=== PATIENT | male | born 1995 | race Caucasian/White ===

== ENCOUNTER 2019-08-28 09:01 | Observation (INO) | payer SELFPAY ==
[2019-08-28] VITALS (10 sets, daily range): BP systolic 127–143; BP diastolic 80–103; PULSE 92–134; RESP 16–18; TEMP 36.3–36.9; O2SAT 94–100; BMI 34.4
--- NOTE | 2019-08-28 09:09 | W.ED.ABDPA2 ---
Documented by User: ALEX Rowell 08/28/19 11:36 HPI - Abdominal Pain General: Chief Complaint: Abdominal Pain Stated Complaint: ABD PAIN Time Seen by Provider: 08/28/19 09:06 Source: patient Mode of arrival: ambulatory Limitations: no limitations History of Present Illness: HPI narrative: Patient comes in today for complaints of abdominal discomfort starting last night and persistent vomiting since that time. Patient has a history of appendectomy which had a rupture and cause some significant scarring and adhesions. Patient since then has had episodes of small bowel obstruction none of them requiring surgery but the last episode was 2 years ago which patient did not even have medical evaluation reportedly. Review of the chart noted that patient had an admission for small bowel obstruction and 2015. Patient also has a history of high blood pressure and was diagnosed when he was 18 years of age at that time. Patient denies any fever or chills. Patient appears mildly unwell. Patient appears in moderate discomfort. Associated Symptoms: Reports constipation, nausea and vomiting Review of Systems General: Reports: 10 or more systems reviewed and unremarkable except in HPI and below GI: Reports: abdominal pain, nausea, vomiting and constipation PFSH ED PFSH: Surgical History (Updated 08/28/19 @ 17:33 by Marcello Bro MD) History of appendectomy Social History Smoking and tobacco status: never smoked Physical Exam Const: COMMON NORMALS: no apparent distress and oriented x3 GENERAL APPEARANCE: cooperative HENMT: COMMON NORMALS: normocephalic, TM's normal bilaterally and external nose normal HEAD & SCALP: normal to inspection and normocephalic NOSE: external nose normal TYMPANIC MEMBRANE: TM's normal bilaterally MOUTH: oral and palatal mucosa normal THROAT: posterior oropharynx normal Eye: GENERAL EYE: normal appearance of both eyes Neck/C-Spine: COMMON NORMALS: full ROM Lymph: LYMPHATIC: no lymphadenopathy noted Chest: COMMONS NORMALS: inspection of chest normal Resp: COMMON NORMALS: normal respiratory effort EFFORT & INSPECTION: Yes able to speak in complete sentences Cardio: COMMON NORMALS: regular rate and regular rhythm RATE: regular rate RHYTHM: regular rhythm GI: COMMON NORMALS: soft to palpation AUSCULTATION: Yes normoactive bowel sounds PALPATION: Yes soft, Yes tender (generalized), No guarding and No rigid : COMMON NORMALS: Yes no CVA tenderness BLADDER/KIDNEY EXAM: Yes no CVA tenderness Back/Pelvis: COMMON NORMALS: no CVA tenderness and thoracic and lumbar spine normal to inspection Extremity: COMMON NORMALS: normal to inspection Neuro: COMMON NORMALS: oriented x3 and moves all extremities Psych: COMMON NORMALS: mental status grossly normal and cooperative Skin: COMMON NORMALS: no rashes or lesions noted GENERAL SKIN EXAM: no rashes or lesions noted Course ED course: 1020, discussed with Dr. Guevara abnormal CT scan showing small bowel obstruction. Recommended to consult with surgery and admission.[email or web address] Vital Signs: Vital signs: Vital Signs Temperature 98.1 F 08/29/19 14:57 Pulse Rate 88 08/29/19 14:57 Respiratory Rate 20 H 08/29/19 14:57 Blood Pressure 105/71 08/29/19 14:57 Pulse Oximetry 98 08/29/19 14:57 MDM - Abdominal Pain MDM Narrative: Medical decision making narrative: Patient came in today for complaints of abdominal pain with nausea and vomiting starting last evening. Patient reports that his last episode of a small bowel obstruction was about 2 years ago where he had had similar symptoms but they resolved by the morning. Patient had a admission to the hospital in 2014 for small bowel obstruction. Exam notes abdomen is soft with generalized tenderness. Bowel sounds are present. Vital signs are normal except for mild elevation in blood pressure and pulse. Skin is warm and dry. Lungs are clear to auscultation. Differential diagnosis includes but not limited to small bowel obstruction, gastroenteritis, constipation, pancreatitis, perforation of the viscus. Laboratory values noted a mild elevation in white blood cell count at 13,000. Metabolic panel was fairly normal. Patient was treated with IV normal saline 1000 cc and 2 mg of morphine and 4 mg of Zofran with good results. CT scan noted small bowel obstruction with transition at old anastomosis site. 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 Reviewed exam with patient with recommendations for admission for monitoring for deterioration of condition, and surgical consult. Discussed with Dr. Guevara who agreed to plan. Patient stated understanding of treatment recommendations and plan. Lab Data: Labs: Lab Results 08/28/19 08/28/19 08/28/19 Range/Units 09:18 09:18 09:18 WBC 13.4 H (4.0-10.0) 10^3/ uL RBC 5.91 H (4.1-5.3) 10^6/u L Hgb 16.4 (11.7-16.6) g/dL Hct 50.0 (42.0-52.0) % MCV 84.6 (80-94) fL MCH 27.7 L (28.0-34.0) pg MCHC 32.8 (30.0-36.0) g/dL RDW 11.8 L (12.1-15.1) % Plt Count 317 (130-400) 10^3/c mm MPV 11.9 H (7.4-10.4) fL Neut % (Auto) 87.5 % Lymph % (Auto) 7.4 % Ventura % (Auto) 4.7 % Eos % (Auto) 0.0 % Baso % (Auto) 0.1 % Neut # (Auto) 11.8 H (1.8-7.7) 10^3/u L Lymph # (Auto) 1.0 (0.8-4.8) 10^3/u L [place] # (Auto) 0.6 (0.2-0.9) 10^3/u L Eos # (Auto) 0.0 (0.0-0.8) 10^3/u L Baso # (Auto) 0.0 (0.0-0.1) 10^3/u L Nucleated RBC % (a uto) 0 % Nucleated RBCs # 0.0 /100WBC PT 13.10 (10.5-13.3) SECO NDS INR 0.96 (0.8-1.2) APTT 23.6 L (23.9-36.7) SECO NDS Sodium 138 (136-145) mmol/L Potassium 4.1 (3.5-5.1) mmol/L Chloride 100 (98-107) mmol/L Carbon Dioxide 22 (22-29) mmol/L Anion Gap 20.1 H (5-19) BUN 13 (6-20) mg/dL Creatinine 1.0 (0.7-1.2) mg/dL GFR Calculation 93.4 (90-130) mL/min Glucose 136 H (65-115) mg/dL Calculated Osmolal ity 284 L (285-295) mOsm/k g Calcium 9.8 (8.5-10.5) mg/dL Total Bilirubin 0.7 (0.15-1.2) mg/dL AST 33 (0-40) U/L ALT 62 H (0-41) U/L Alkaline Phosphata se 99 (40-130) IU/L Total Protein 8.2 (6.6-8.7) g/dL Albumin 5.1 (3.5-5.2) g/dL Globulin 3.1 (1.3-4.6) g/dL Lipase 22 (13-60) U/L Urine Color (Yellow) Urine Appearance (CLEAR) Urine pH (5-7) Ur Specific Gravit y (1.005-1.030) Urine Protein (Negative) Urine Glucose (UA) (Normal) Urine Ketones (Negative) Urine Blood (Negative) Urine Nitrate (Negative) Urine Bilirubin (NEGATIVE) Urine Urobilinogen (Negative) mg/dL Ur Leukocyte Krystin ase (Negative) Urine RBC (0-2) /hpf Urine WBC (0-5) /hpf Ur Squamous Epith Cells (0-5) Urine Bacteria (NONE) Fine Granular Cast s /lpf RBC Casts /lpf Urine Mucus 08/28/19 Range/Units 09:32 WBC (4.0-10.0) 10^3/ uL RBC (4.1-5.3) 10^6/u L Hgb (11.7-16.6) g/dL Hct (42.0-52.0) % MCV (80-94) fL MCH (28.0-34.0) pg MCHC (30.0-36.0) g/dL RDW (12.1-15.1) % Plt Count (130-400) 10^3/c mm MPV (7.4-10.4) fL Neut % (Auto) % Lymph % (Auto) % Ventura % (Auto) % Eos % (Auto) % Baso % (Auto) % Neut # (Auto) (1.8-7.7) 10^3/u L Lymph # (Auto) (0.8-4.8) 10^3/u L [place] # (Auto) (0.2-0.9) 10^3/u L Eos # (Auto) (0.0-0.8) 10^3/u L Baso # (Auto) (0.0-0.1) 10^3/u L Nucleated RBC % (a uto) % Nucleated RBCs # /100WBC PT (10.5-13.3) SECO NDS INR (0.8-1.2) APTT (23.9-36.7) SECO NDS Sodium (136-145) mmol/L Potassium (3.5-5.1) mmol/L Chloride (98-107) mmol/L Carbon Dioxide (22-29) mmol/L Anion Gap (5-19) BUN (6-20) mg/dL Creatinine (0.7-1.2) mg/dL GFR Calculation (90-130) mL/min Glucose (65-115) mg/dL Calculated Osmolal ity (285-295) mOsm/k g Calcium (8.5-10.5) mg/dL Total Bilirubin (0.15-1.2) mg/dL AST (0-40) U/L ALT (0-41) U/L Alkaline Phosphata se (40-130) IU/L Total Protein (6.6-8.7) g/dL Albumin (3.5-5.2) g/dL Globulin (1.3-4.6) g/dL Lipase (13-60) U/L Urine Color Yellow (Yellow) Urine Appearance Hazy A (CLEAR) Urine pH 5 (5-7) Ur Specific Gravit y 1.020 (1.005-1.030) Urine Protein 1+ H (Negative) Urine Glucose (UA) Norm (Normal) Urine Ketones 1+ H (Negative) Urine Blood 2+ H (Negative) Urine Nitrate Negative (Negative) Urine Bilirubin 1+ H (NEGATIVE) Urine Urobilinogen 1 H (Negative) mg/dL Ur Leukocyte Krystin ase Negative (Negative) Urine RBC 5-10 H (0-2) /hpf Urine WBC None (0-5) /hpf Ur Squamous Epith Cells 0-4 H (0-5) Urine Bacteria 2+ H (NONE) Fine Granular Cast s 0-4 H /lpf RBC Casts Rare /lpf Urine Mucus 2+ Discharge Plan Discharge Patient Disposition: Placed in Observation Admit Provider: Marcello Bro Clinical Impression: Small bowel obstruction Condition: Stable Referrals: Marcello Bro MD [Physician] - 09/12/19 2:15 pm (Return to surgery office in 2 weeks) Jonna Casiano DO [Physician] - 4-7 days Discharge Diet: Advance as tolerated Discharge Activity: Resume usual activity Patient Instructions: Constipation - Adult, Bowel Obstruction (DC) Additional Instructions: Education about avoid constipation and appropriate hydration Return back to work this coming 09/02/2019 Patient can be discharged home today once his comfortable and tolerating well p.o. 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 He was found to have a bowel obstruction admitted to see the patient he is complaining of abdominal pain and bloating as had a bowel movement yesterday. He had nausea and vomiting overnight he still has nausea but has not had further vomiting. He had previously had a ruptured appendix that required a small bowel obstruction he said a couple other episodes of bowel obstruction since due to adhesions. MD elicited complaint: abdominal pain Pertinent past history: other (Previous small bowel resection due to abscess from) Onset (ago): day(s) Pain Consistency: constant Location: RLQ Severity: severe Quality: cramping Radiation: none Migration to: no migration Context: history of similar episodes Associated Symptoms: Reports anorexia, bloating, GI cramping, nausea, poor appetite and vomiting; Denies chills, fever(s), hematochezia, hematuria, hematemesis, loose stools and melena Review of Systems Const: Denies: fever, chills, body aches, change in appetite, fatigue or malaise ENMT: Denies: throat pain, ear pain, nasal discharge or nasal congestion Card: Denies: chest pain, edema, shortness of breath on exertion or shortness of breath when lying down Resp: Denies: shortness of breath, productive cough or non-productive cough GI: Reports: nausea, vomiting, bloating and cramping; Denies: vomiting blood, blood in stool or black tarry stool : Denies: blood in urine Skin/Breast: Denies: rash or itching PFSH ED PFSH: Surgical History (Updated 08/28/19 @ 17:33 by Marcello Bro MD) History of appendectomy Social History Smoking and tobacco status: never smoked Physical Exam Const: COMMON NORMALS: average body habitus, oriented x3 and alert GENERAL APPEARANCE: cooperative, comfortable, well kempt and well developed NUTRITIONAL APPEARANCE: obese ORIENTATION/CONSCIOUSNESS: Yes awake, Yes oriented to person and Yes oriented to place Neck/C-Spine: COMMON NORMALS: no meningeal signs Resp: COMMON NORMALS: normal respiratory effort, no retractions, no use of accessory muscles and clear to auscultation bilaterally AUSCULTATION: clear to auscultation bilaterally Cardio: COMMON NORMALS: regular rate and regular rhythm RATE: regular rate RHYTHM: regular rhythm HEART SOUNDS: no murmurs GI: COMMON NORMALS: no hepatosplenomegaly INSPECTION: Yes abdominal distension AUSCULTATION: Yes absent bowel sounds PALPATION: Yes no hepatosplenomegaly PERCUSSION: tympanic to percussion : COMMON NORMALS: Yes no CVA tenderness BLADDER/KIDNEY EXAM: Yes no CVA tenderness Back/Pelvis: COMMON NORMALS: no CVA tenderness LUMBAR SPINE/LOWER BACK: Yes normal to inspection Extremity: COMMON NORMALS: no clubbing, cyanosis or edema, no calf tenderness and no pedal edema Neuro: COMMON NORMALS: oriented x3 SENSORIUM/ORIENTATION: Yes alert, Yes oriented to person and Yes oriented to place MENINGEAL SIGNS: Yes no meningeal signs Psych: APPEARANCE: Yes well kempt Skin: COMMON NORMALS: no rashes or lesions noted and skin turgor normal GENERAL SKIN EXAM: no rashes or lesions noted and turgor normal Course Vital Signs: Vital signs: Vital Signs Temperature 98.1 F 08/29/19 14:57 Pulse Rate 88 08/29/19 14:57 Respiratory Rate 20 H 08/29/19 14:57 Blood Pressure 105/71 08/29/19 14:57 Pulse Oximetry 98 08/29/19 14:57 MDM - Abdominal Pain MDM Narrative: Medical decision making narrative: NG placed cussed Dr. Bro will admit to his services. Lab Data: Labs: Lab Results 08/28/19 08/28/19 08/28/19 Range/Units 09:18 09:18 09:18 WBC 13.4 H (4.0-10.0) 10^3/ uL RBC 5.91 H (4.1-5.3) 10^6/u L Hgb 16.4 (11.7-16.6) g/dL Hct 50.0 (42.0-52.0) % MCV 84.6 (80-94) fL MCH 27.7 L (28.0-34.0) pg MCHC 32.8 (30.0-36.0) g/dL RDW 11.8 L (12.1-15.1) % Plt Count 317 (130-400) 10^3/c mm MPV 11.9 H (7.4-10.4) fL Neut % (Auto) 87.5 % Lymph % (Auto) 7.4 % Ventura % (Auto) 4.7 % Eos % (Auto) 0.0 % Baso % (Auto) 0.1 % Neut # (Auto) 11.8 H (1.8-7.7) 10^3/u L Lymph # (Auto) 1.0 (0.8-4.8) 10^3/u L [place] # (Auto) 0.6 (0.2-0.9) 10^3/u L Eos # (Auto) 0.0 (0.0-0.8) 10^3/u L Baso # (Auto) 0.0 (0.0-0.1) 10^3/u L Nucleated RBC % (a uto) 0 % Nucleated RBCs # 0.0 /100WBC PT 13.10 (10.5-13.3) SECO NDS INR 0.96 (0.8-1.2) APTT 23.6 L (23.9-36.7) SECO NDS Sodium 138 (136-145) mmol/L Potassium 4.1 (3.5-5.1) mmol/L Chloride 100 (98-107) mmol/L Carbon Dioxide 22 (22-29) mmol/L Anion Gap 20.1 H (5-19) BUN 13 (6-20) mg/dL Creatinine 1.0 (0.7-1.2) mg/dL GFR Calculation 93.4 (90-130) mL/min Glucose 136 H (65-115) mg/dL Calculated Osmolal ity 284 L (285-295) mOsm/k g Calcium 9.8 (8.5-10.5) mg/dL Total Bilirubin 0.7 (0.15-1.2) mg/dL AST 33 (0-40) U/L ALT 62 H (0-41) U/L Alkaline Phosphata se 99 (40-130) IU/L Total Protein 8.2 (6.6-8.7) g/dL Albumin 5.1 (3.5-5.2) g/dL Globulin 3.1 (1.3-4.6) g/dL Lipase 22 (13-60) U/L Urine Color (Yellow) Urine Appearance (CLEAR) Urine pH (5-7) Ur Specific Gravit y (1.005-1.030) Urine Protein (Negative) Urine Glucose (UA) (Normal) Urine Ketones (Negative) Urine Blood (Negative) Urine Nitrate (Negative) Urine Bilirubin (NEGATIVE) Urine Urobilinogen (Negative) mg/dL Ur Leukocyte Krystin ase (Negative) Urine RBC (0-2) /hpf Urine WBC (0-5) /hpf Ur Squamous Epith Cells (0-5) Urine Bacteria (NONE) Fine Granular Cast s /lpf RBC Casts /lpf Urine Mucus 08/28/19 Range/Units 09:32 WBC (4.0-10.0) 10^3/ uL RBC (4.1-5.3) 10^6/u L Hgb (11.7-16.6) g/dL Hct (42.0-52.0) % MCV (80-94) fL MCH (28.0-34.0) pg MCHC (30.0-36.0) g/dL RDW (12.1-15.1) % Plt Count (130-400) 10^3/c mm MPV (7.4-10.4) fL Neut % (Auto) % Lymph % (Auto) % [place] % (Auto) % Eos % (Auto) % Baso % (Auto) % Neut # (Auto) (1.8-7.7) 10^3/u L Lymph # (Auto) (0.8-4.8) 10^3/u L [place] # (Auto) (0.2-0.9) 10^3/u L Eos # (Auto) (0.0-0.8) 10^3/u L Baso # (Auto) (0.0-0.1) 10^3/u L Nucleated RBC % (a uto) % Nucleated RBCs # /100WBC PT (10.5-13.3) SECO NDS INR (0.8-1.2) APTT (23.9-36.7) SECO NDS Sodium (136-145) mmol/L Potassium (3.5-5.1) mmol/L Chloride (98-107) mmol/L Carbon Dioxide (22-29) mmol/L Anion Gap (5-19) BUN (6-20) mg/dL Creatinine (0.7-1.2) mg/dL GFR Calculation (90-130) mL/min Glucose (65-115) mg/dL Calculated Osmolal ity (285-295) mOsm/k g Calcium (8.5-10.5) mg/dL Total Bilirubin (0.15-1.2) mg/dL AST (0-40) U/L ALT (0-41) U/L Alkaline Phosphata se (40-130) IU/L Total Protein (6.6-8.7) g/dL Albumin (3.5-5.2) g/dL Globulin (1.3-4.6) g/dL Lipase (13-60) U/L Urine Color Yellow (Yellow) Urine Appearance Hazy A (CLEAR) Urine pH 5 (5-7) Ur Specific Gravit y 1.020 (1.005-1.030) Urine Protein 1+ H (Negative) Urine Glucose (UA) Norm (Normal) Urine Ketones 1+ H (Negative) Urine Blood 2+ H (Negative) Urine Nitrate Negative (Negative) Urine Bilirubin 1+ H (NEGATIVE) Urine Urobilinogen 1 H (Negative) mg/dL Ur Leukocyte Krystin ase Negative (Negative) Urine RBC 5-10 H (0-2) /hpf Urine WBC None (0-5) /hpf Ur Squamous Epith Cells 0-4 H (0-5) Urine Bacteria 2+ H (NONE) Fine Granular Cast s 0-4 H /lpf RBC Casts Rare /lpf Urine Mucus 2+ Discharge Plan Discharge Patient Disposition: Placed in Observation Admit Provider: Marcello Bro Clinical Impression: Small bowel obstruction Condition: Stable Referrals: Marcello Bro MD [Physician] - 09/12/19 2:15 pm (Return to surgery office in 2 weeks) Jonna Casiano DO [Physician] - 4-7 days Discharge Diet: Advance as tolerated Discharge Activity: Resume usual activity Patient Instructions: Constipation - Adult, Bowel Obstruction (DC) Additional Instructions: Education about avoid constipation and appropriate hydration Return back to work this coming 09/02/2019 Patient can be discharged home today once his comfortable and tolerating well p.o. Discharge Date/Time: 08/28/19 11:25 Coding Level of Care Code ED Metal Sheet Roller Operator for Chg Fwd Exam Comprehensive
--- NOTE | 2019-08-28 09:18 | CT_ITS ---
WS: [id number] CT ABDOMEN PELVIS TECHNIQUE: Contrast-enhanced CT of the abdomen and pelvis with coronal and sagittal reformatted image s. CLINICAL INFORMATION: abd pain, n/v, hx of SBO COMPARISON: None. DLP: 1632.[address] scans at [facility] use at least one of these dose optimization techniques: automat ed exposure control; mA and/or kV adjustment per patient size (includes targeted exams where dose is matched to clinical indication); or iterative reconstruction. FINDINGS: Mild diffuse fatty infiltration liver. Normal gallbladder. Normal spleen. Pancreas appears normal. Ad renal glands are normal. Normal bilateral renal parenchymal enhancement. No hydronephrosis. No upper abdominal lymphadenopathy. Normal GE junction. Lung bases are well aerated. Normal sigmoid colon. Colon is decompressed. Prior postoperative changes involving the ileum with flu id distended small bowel loops in the midabdomen and pelvis consistent with partial small bowel obstr uction. Bowel loops measure approximately 4.1 cm in maximum dimension. Air-fluid levels seen in the s mall bowel. Stomach and proximal small bowel are normal. Transition point point in the distal ileum a t the anastomosis with mild narrowing. Series 2 image 72, appears to result in the partial small waqas l obstruction. No abdominal or pelvic lymphadenopathy. Mild lumbar curve convex left. CT/CT abdomen pelvis w con* [id number] IMPRESSION: 1. Partial small bowel obstruction involving the ileum with fluid distended sm all bowel loops measuring 4.1 cm with air-fluid levels. Colon is decompressed. 2. Mild narrowing with transition point at the prior postoperative small bowel anastomosis in the distal ileum, series 2 image 72. 3. Mild diffuse fatty infiltration of the liver. 4. No hydronephrosis in either kidney.
[2019-08-28] MEDS: morphine 4 mg/mL SDV 1 mL 2 MG IVP (09:28)
[2019-08-28] MEDS: sodium chloride 0.9% 1,000 ML 999 ML IV (09:28)
[2019-08-28] MEDS: ondansetron 2 mg/ML SDV 2 mL 4 MG IVP (09:28)
--- NOTE | 2019-08-28 09:31 | PC.NURSE ---
Pt to CT
[2019-08-28] MEDS: iohexol 300 mg/mL 100 mL Btl IV (09:37)
[2019-08-28 09:40] LABS: Basophils % 0.1 %; Hemoglobin 16.4 g/dL (11.7-16.6); Lymphocytes % 7.4 %; Mean Corpuscular HGB Conc 32.8 g/dL (30.0-36.0); Mean Corpuscular Hemoglobin 27.7 pg (28.0-34.0); Mean Corpuscular Volume 84.6 fL (80-94); Mean Platelet Volume 11.9 fL (7.4-10.4); Monocytes # 0.6 10^3/uL (0.2-0.9); Monocytes % 4.7 %; Neutrophils # 11.8 10^3/uL (1.8-7.7); Neutrophils % 87.5 %; Nucleated Red Blood Cells % 0 %; Platelet Count 317 10^3/cmm (130-400); Red Blood Count 5.91 10^6/uL (4.1-5.3); Red Cell Distribution Width 11.8 % (12.1-15.1); White Blood Count 13.4 10^3/uL (4.0-10.0)
--- NOTE | 2019-08-28 09:44 | PC.NURSE ---
Pt returned from ct
[2019-08-28 09:51] LABS: Bilirubin Urine 1+ (NEGATIVE); Blood Urine 2+ (Negative); Glucose Urine UA Norm (Normal); Ketones Urine 1+ (Negative); Leukocyte Esterase Urine Negative (Negative); Nitrate Urine Negative (Negative); Protein Urine 1+ (Negative); Urine Appearance Hazy (CLEAR); Urine Color Yellow (Yellow); Urobilinogen Urine 1 mg/dL (Negative); pH Urine 5 (5-7)
[2019-08-28 09:52] LABS: Add Urine Microscopic? YES
[2019-08-28 09:54] LABS: Add Urine Culture? Yes; Bacteria Urine 2+; Fine Granular Casts Urine 0-4 /lpf; Mucus Urine 2+; Red Blood Cell Casts Urine RARE /lpf; Squamous Epithelial Cell Urine 0-4 (0-5)
[2019-08-28 09:57] LABS: Alanine Aminotransferase 62 U/L (0-41); Albumin Level 5.1 g/dL (3.5-5.2); Alkaline Phosphatase 99 IU/L (40-130); Anion Gap 20.1 (5-19); Aspartate Amino Transferase 33 U/L (0-40); Blood Urea Nitrogen 13 mg/dL (6-20); Calcium 9.8 mg/dL (8.5-10.5); Carbon Dioxide 22 mmol/L (22-29); Chloride 100 mmol/L (98-107); Globulin 3.1 g/dL (1.3-4.6); Glomerular Filtration Rate 93.4 mL/min (90-130); Glucose 136 mg/dL (65-115); Lipase 22 U/L (13-60); Osmolality Calculated 284 mOsm/kg (285-295); Potassium 4.1 mmol/L (3.5-5.1); Sodium 138 mmol/L (136-145); Total Bilirubin 0.7 mg/dL (0.15-1.2); Total Protein 8.2 g/dL (6.6-8.7)
--- NOTE | 2019-08-28 10:09 | XR_ITS ---
WS: [id number] XR chest 1V portable [id number] REASON FOR EXAM: SBO FINDINGS: The heart and mediastinal interfaces normal. Lung daley are well aerated. No pneumonia, pleural effusion, pulmonary edema, pneumothorax, or mass effect. The hilum and apices normal. No osseous abnormalities. XR/XR chest 1V portable [id number] IMPRESSION: Negative chest for active pathology.
--- NOTE | 2019-08-28 10:22 | PC.NURSE ---
Pt given mouth swabs per request. Updated on wait for radiology report. Pt denies needs at this time. Call light in reach.
--- NOTE | 2019-08-28 10:40 | PC.NURSE ---
16Fr NGT placed to right nare. Pt tolerated procedure fairly. Placement confirmed by auscultation and aspiration of gastric contents. Pt hooked to suction per VO from Dr Guevara.
[2019-08-28] MEDS: sodium chlor 0.9% + KCl 20 mEq 20 MEQ/1,000 ML BAG 125 MEQ IV (11:15)
--- NOTE | 2019-08-28 11:39 | P.HP_ITS ---
Providers/Chief Complaint Admitting Physician: Marcello Bro MD Chief Complaint: SMALL BOWEL OBSTRUCTION History of Present Illness Chief Complaint: Nausea vomiting and abdominal pain History of present illness: Mr. Manny Banerjee is a pleasant 23 year old male with history of open appendectomy back in 2004 at a different facility that complicated and developed what he describes as necrotic bowel and he had to have an exploratory laparotomy and ended up by bowel resection, patient describes that he had a bout of partial bowel obstruction back in 2014 and was treated conservatively, the presents to the emergency department with worsening abdominal pain particularly in the right and left upper quadrants and right lower quadrant pain seems to be more dull aching is not being referred and that was associated with nausea and vomiting, as his symptoms got worse came to the ER and undergone blood work and imaging studies CT scan of the abdomen and pelvis showed: Mild diffuse fatty infiltration liver. Normal gallbladder. Normal spleen. Pancreas appears normal. Adrenal glands are normal. Normal bilateral renal parenchymal enhancement. No hydronephrosis. No upper abdominal lymphadenopathy. Normal GE junction. Lung bases are well aerated. Normal sigmoid colon. Colon is decompressed. Prior postoperative changes involving the ileum with fluid distended small bowel loops in the midabdomen and pelvis consistent with partial small bowel obstruction. Bowel loops measure approximately 4.1 cm in maximum dimension. Air- fluid levels seen in the small bowel. Stomach and proximal small bowel are normal. Transition point point in the distal ileum at the anastomosis with mild narrowing. Series 2 image 72, appears to result in the partial small bowel obstruction. No abdominal or pelvic lymphadenopathy. Mild lumbar curve convex left. CT/CT abdomen pelvis w con* [id number] IMPRESSION: 1. Partial small bowel obstruction involving the ileum with fluid distended small bowel loops measuring 4.1 cm with air-fluid levels. Colon is decompressed. 2. Mild narrowing with transition point at the prior postoperative small bowel anastomosis in the distal ileum, series 2 image 72. 3. Mild diffuse fatty infiltration of the liver. 4. No hydronephrosis in either kidney. Patient reports that his last bowel movement 3 PM yesterday and he does not remember one was last time he passed gas, denies any fever chills or jaundice. General surgery was consulted for further evaluation and management and NG tube has been already placed per ED team feeling scanty gastric count Review of Systems General: Reports: 10 or more systems reviewed and unremarkable except in HPI and below Medications/Allergies Home Medications Medication Instructions Recorded Confirmed Last Taken Type No Known Home Medications 08/28/19 08/28/19 Unknown History Allergies Allergy/AdvReac Type Severity Reaction Status Date / Time Penicillins Allergy Unknown Verified 08/28/19 13:36 Sulfa (Sulfonamide Allergy Unknown Verified 08/28/19 13:36 Antibiotics) PFSH Acute PFSH: Surgical History (Updated 08/28/19 @ 17:33 by Marcello Bro MD) History of appendectomy Social History Smoking and tobacco status: never smoked Vitals/I&O/Wt Last Vital Signs Temp 97.7 F 08/28/19 11:33 Pulse 102 H 08/28/19 11:33 Resp 18 08/28/19 11:33 BP 138/90 08/28/19 11:33 Pulse Ox 98 08/28/19 11:33 08/27/19 08/28/19 08/28/19 22:59 06:59 14:59 Intake Total 1000 / 1000 Balance 1000 / 1000 Weight last 48 hrs Weight 240 lb Physical Exam Const: COMMON NORMALS: no apparent distress and oriented x3 GENERAL APPEARANCE: cooperative ORIENTATION/CONSCIOUSNESS: Yes awake, Yes oriented to person, Yes oriented to place and Yes oriented to time HENMT: COMMON NORMALS: normocephalic HEAD & SCALP: normocephalic NOSE: other (NG in place with minimal output) Eye: COMMON NORMALS: PERRL and no scleral icterus PUPIL: Yes PERRL Lymph: LYMPHATIC: no lymphadenopathy noted Chest: COMMONS NORMALS: inspection of chest normal Resp: COMMON NORMALS: normal respiratory effort and clear to auscultation bilaterally AUSCULTATION: clear to auscultation bilaterally Cardio: COMMON NORMALS: S1 normal heart sound and S2 normal heart sound; negative for no murmurs HEART SOUNDS: S1 normal and S2 normal GI: COMMON NORMALS: soft to palpation; negative for no hepatosplenomegaly INSPECTION: Yes normal to inspection PALPATION: Yes soft, No firm, No tender, No guarding, No rigid, No no hepatosplenomegaly, No hepatosplenomegaly, No splenomegaly, No hernia and Yes other (Right lower quadrant transverse scar and mid midline scar) Neuro: COMMON NORMALS: oriented x3 SENSORIUM/ORIENTATION: Yes oriented to person, Yes oriented to place and Yes oriented to time Psych: COMMON NORMALS: mental status grossly normal Skin: COMMON NORMALS: no rashes or lesions noted GENERAL SKIN EXAM: no rashes or lesions noted Data : 08/28/19 09:18 08/28/19 09:18 A&P Assessment and plan (1) Small bowel obstruction: After thorough history physical examination and reviewing the chart and images with my personal interpretation, I believe that the patient has partial small bowel obstruction should respond to conservative measures in the form of NG tube to intermittent wall suction. IV fluid resuscitation LR at 150 ml/hr Repeated physical exam Repeat labs in the morning Strict I's and O's NG to low intermittent wall suction can be disconnected for ambulation purpose DVT pharmacologic prophylaxis Milk of Molaces Enema KUB in the am Assurance and education All questions have been answered and all concerns have been addressed to patient's satisfaction. Status: Acute Attestations Medical Necessity Statement*: Observation status Time Spent in Patient Care: 16 - 35 minutes (>than 50% of time spent in counselling and/or direct pt care on unit) . Coding Level of Care Code Acute Exceptional Children Teacher Assistant for Chg Fwd Exam Comprehensive Diagnoses Small bowel obstruction K56.609
[2019-08-28 11:55] LABS: INR 0.96 (0.8-1.2)
[2019-08-28 13:38] LABS: Partial Thromboplastin Time 23.6 SECONDS (23.9-36.7)
[2019-08-28 13:57] LABS: Lactate (Lactic Acid level) 2.1 mmol/L (0.5-2.2)
[2019-08-28] MEDS: dextrose 5%-sod chloride 0.45% 1,000 ML 100 ML IV (15:45)
[2019-08-28] MEDS: enoxaparin 40 mg/0.4 mL Syringe SUBCUT (15:45)
[2019-08-28] MEDS: lactated ringers 1,000 ML 150 ML IV (18:18)
--- NOTE | 2019-08-28 18:42 | PC.NURSE ---
Milk of molasses enema given pt tolerated well, pt had results following enema.
[2019-08-29] MEDS: lactated ringers 1,000 ML 150 ML IV ×2 (01:15→08:55)
[2019-08-29 02:33] LABS: Basophils % 0.2 %; Eosinophils # 0.1 10^3/uL (0.0-0.8); Eosinophils % 0.8 %; Hematocrit 42.8 % (42.0-52.0); Hemoglobin 13.6 g/dL (11.7-16.6); Lymphocytes % 32.6 %; Mean Corpuscular HGB Conc 31.8 g/dL (30.0-36.0); Mean Corpuscular Hemoglobin 27.5 pg (28.0-34.0); Mean Corpuscular Volume 86.6 fL (80-94); Mean Platelet Volume 11.7 fL (7.4-10.4); Monocytes # 0.7 10^3/uL (0.2-0.9); Monocytes % 11.9 %; Neutrophils # 3.3 10^3/uL (1.8-7.7); Neutrophils % 54.3 %; Nucleated Red Blood Cells % 0 %; Platelet Count 227 10^3/cmm (130-400); Red Blood Count 4.94 10^6/uL (4.1-5.3)
[2019-08-29 02:46] LABS: Alanine Aminotransferase 38 U/L (0-41); Alkaline Phosphatase 82 IU/L (40-130); Anion Gap 11.1 (5-19); Aspartate Amino Transferase 22 U/L (0-40); Blood Urea Nitrogen 12 mg/dL (6-20); Carbon Dioxide 27 mmol/L (22-29); Chloride 107 mmol/L (98-107); Globulin 2.6 g/dL (1.3-4.6); Glomerular Filtration Rate 105.5 mL/min (90-130); Glucose 106 mg/dL (65-115); Osmolality Calculated 289 mOsm/kg (285-295); Potassium 4.1 mmol/L (3.5-5.1); Sodium 141 mmol/L (136-145); Total Bilirubin 0.7 mg/dL (0.15-1.2); Total Protein 6.6 g/dL (6.6-8.7)
[2019-08-29 02:47] LABS: Lactic Acid level (Lactate) 1.1 mmol/L (0.5-2.2)
[2019-08-29 03:56] VITALS: BP 137/78; PULSE 94; RESP 18; TEMP 36.8; O2SAT 96
--- NOTE | 2019-08-29 05:00 | XR_ITS ---
WS: [id number] XR abdomen min 2V [id number] REASON FOR EXAM: ERECT and Supine FINDINGS: A nasogastric tube is seen in the fundus of the stomach. We recommend this be repositioned. Scattered air-fluid levels in the small bowel are seen. There is no definite full blown obstruction seen. XR/XR abdomen min 2V [id number] IMPRESSION: Scattered small bowel ileus changes The nasogastric tube is high in the fundus we recommend this be repositioned.
--- NOTE | 2019-08-29 06:33 | PM.PN ---
Subjective Subjective: Interval history: Patient overall feels better responded to the milk of molasses enema and had 2 bowel movements. And continues to have passage of gas NG output per shift 500 mL KUB was done at 5:00 in the morning per my interpretation shows gas pattern towards the rectum and colon Normalization of WBC count and serum creatinine, patient responded well to resuscitation. Vitals/I&O/Wt Last Vital Signs Temp 98.2 F 08/29/19 03:56 Pulse 94 08/29/19 03:56 Resp 18 08/29/19 03:56 BP 137/78 08/29/19 03:56 Pulse Ox 96 08/29/19 03:56 08/28/19 08/28/19 08/29/19 14:59 22:59 06:59 Intake Total 1000 / 1000 0 / 1000 1000 / 2000 Output Total 50 / 50 700 / 750 Balance 1000 / 1000 -50 / 950 300 / 1250 Weight last 48 hrs Weight 240 lb Physical Exam Narrative: EXAM NARRATIVE: Patient is conscious alert oriented X3 NGT in place BMI 34 Head and neck examination PERRLA no masses no cervical lymphadenopathy no jaundice Abdomen nontender nondistended soft no organomegaly guarding or rigidity/no signs of peritonitis Data : 08/29/19 02:20 08/29/19 02:20 A&P Assessment and plan (1) Small bowel obstruction: Plan to clamp NG tube and will DC clamp if patient starts to have nausea and vomiting, will check residuals after 2 hours and if less than 200 mL will DC NG tube and start the patient on clear liquid. Continue IV fluid resuscitation LR at 150 ml/hr Repeated physical exam Strict I's and O's DVT pharmacologic prophylaxis Assurance and education All questions have been answered and all concerns have been addressed to patient's satisfaction. Status: Resolved Attestations Medical Necessity Statement*: Observation Time Spent in Patient Care: 16 - 35 minutes (>than 50% of time spent in counselling and/or direct pt care on unit). Coding Level of Care Code Acute Acoustical Installer for Funmi Pruitt Diagnoses Small bowel obstruction K56.609
[2019-08-29 07:00] VITALS: BP 122/75; PULSE 91; RESP 20; TEMP 36.7; O2SAT 97
--- NOTE | 2019-08-29 08:51 | PC.NURSE ---
Employee Relations Specialist checked pt residual it was 25ml NG tube was removed. pt tolerated well.
[2019-08-29 11:00] VITALS: BP 105/71; PULSE 88; RESP 20; TEMP 36.7; O2SAT 98
--- NOTE | 2019-08-29 11:09 | PC.CHAP ---
Pastoral Care Encounter/Spiritual Assessment Type of Contact [] Declined motor vehicle dispatcher visit [] Patient/Family/Request visit [] Outpatient visit [] Follow-up visit [] Physician referral [] Code/Alert [x] Routine visit [] Staff referral [] Actively dying [] Patient sleeping [] Family support [] [] Out of room [] Palliative care [] [] Receiving care in room [] Pre-surgical visit [] Trauma [] Long length of stay [] ICU visit [] Other: Relational/Emotional Strength [x] Patient feels connected with others/family/visitors/staff [] Distress [] Loneliness/isolation [] Abandonment Spirituality of Patient [x] Person of Casandra [] Attends Hoahaoism of their Casandra [] Believes in Prayer [] Reads Bible or Confucianism materials [x] There are Spiritual issues to be addressed Transport Tank Technician Interventions [x] Prayer [x] Active listening [x] Non-anxious presence [x] Spiritual/emotional support [] Crisis/trauma care [] Spiritual counseling [] Bereavement support [] Provided bereavement packet [] Provided Bible/devotional materials [] Provided toy/stuffed animal, coloring book to patient or family member [] Provided Communion [] Anointing/[place] [] Salvation [x] Completed spiritual assessment [] Other: Impact on Illness or Injury [] Angry [] Fearful [] Anxious [] Often cries [] Exhaustion [] Unable to work [] Unable to attend tenriism [] Unable to walk/stand [] Unable to read [] Unable to drive [] Unable to eat/drink [] Unable to sleep [] Unable to be with family [] Patient intubated [x] Other: Summary Patient is weak in understanding to casandra in [place]. The Gospel was proclaimed. Time spent with patient 10 minutes
--- NOTE | 2019-08-29 13:05 | PM.SDS ---
Short Stay Summary Providers Date of Admit/Discharge: 08/29/19 Attending Provider: Marcello Bro MD Chief Complaint: SMALL BOWEL OBSTRUCTION HPI History of Present Illness Please see full HPI per H&P Home Meds/Allergies Home Medications and Allergies Home Medications Medication Instructions Recorded Confirmed Type No Known Home Medications 08/28/19 08/28/19 History Allergies Allergy/AdvReac Type Severity Reaction Status Date / Time Penicillins Allergy Unknown Verified 08/28/19 13:36 Sulfa (Sulfonamide Allergy Unknown Verified 08/28/19 13:36 Antibiotics) PFSH Acute PFSH: Surgical History (Updated 08/28/19 @ 17:33 by Marcello Bro MD) History of appendectomy Social History Smoking and tobacco status: never smoked Vitals/I&O/Wt Last Vital Signs Temp 98.1 F 08/29/19 11:00 Pulse 88 08/29/19 11:00 Resp 20 H 08/29/19 11:00 BP 105/71 08/29/19 11:00 Pulse Ox 98 08/29/19 11:00 08/28/19 08/29/19 08/29/19 22:59 06:59 14:59 Intake Total 0 / 1000 1000 / 2000 1700 / 1700 Output Total 50 / 50 700 / 750 25 / 25 Balance -50 / 950 300 / 1250 1675 / 1675 Weight last 48 hrs Weight 240 lb Physical Exam Const: COMMON NORMALS: no apparent distress and oriented x3 GENERAL APPEARANCE: cooperative ORIENTATION/CONSCIOUSNESS: Yes awake, Yes oriented to person, Yes oriented to place and Yes oriented to time HENMT: COMMON NORMALS: normocephalic HEAD & SCALP: normocephalic NOSE: other (NG in place with minimal output) Eye: COMMON NORMALS: PERRL and no scleral icterus PUPIL: Yes PERRL Lymph: LYMPHATIC: no lymphadenopathy noted Chest: COMMONS NORMALS: inspection of chest normal Resp: COMMON NORMALS: normal respiratory effort and clear to auscultation bilaterally AUSCULTATION: clear to auscultation bilaterally Cardio: COMMON NORMALS: S1 normal heart sound and S2 normal heart sound; negative for no murmurs HEART SOUNDS: S1 normal and S2 normal GI: COMMON NORMALS: soft to palpation; negative for no hepatosplenomegaly INSPECTION: Yes normal to inspection PALPATION: Yes soft, No firm, No tender, No guarding, No rigid, No no hepatosplenomegaly, No hepatosplenomegaly, No splenomegaly, No hernia and Yes other (Right lower quadrant transverse scar and mid midline scar) Neuro: COMMON NORMALS: oriented x3 SENSORIUM/ORIENTATION: Yes oriented to person, Yes oriented to place and Yes oriented to time Psych: COMMON NORMALS: mental status grossly normal Skin: COMMON NORMALS: no rashes or lesions noted GENERAL SKIN EXAM: no rashes or lesions noted Hospital Course Discharge Summary: This is a pleasant 23 years old gentleman presented with history of partial small bowel obstruction in the form of adhesive type due to previous laparotomy for appendectomy that was complicated at that time and small bowel resection was done back in 2004, patient presented to the ER with worsening nausea vomiting and abdominal pain and a CT scan showed concerning for small bowel obstruction, patient responded well to NG tube placement with conservative measures in the form of IV fluids and repeated physical examination, NG was clamped and was taken out and tolerating well p.o. intake with repeated passage of gas. Patient is appropriate to be discharged home today and continue to have stable vital signs and good urine SSS Data Data Completed and Pending: Completed Studies During Hospitalization Category Date Time Status CT abdomen pelvis w con* [id number] Urge nt Cat Scan 08/28/19 09:18 Completed XR abdomen min 2V [id number] Routine Exams 08/29/19 05:00 Taken XR chest 1V zbigniew ble [id number] Stat Exams 08/28/19 10:09 Completed Pending at discharge Category Date Time Status Urine Culture Sta t Lab 08/28/19 09:32 Received Diagnoses at Discharge Discharge Diagnosis (1) Small bowel obstruction: Status: Resolved Problem details: Patient is tolerating well p.o. intake and passing gas frequently, will plan to discharge home today Discharge Plan Discharge Patient Disposition: Home, Self-Care Condition: Stable Prescriptions: Continued No Known Home Medications RF: 0 Discharge Orders: Discharge Order (Routine); Ordered 08/29/19 Ordered By: Marcello Bro Referrals: Srinivas Love [Family Provider] - Marcello Bro MD [Physician] - (Return to surgery office in 2 weeks) Discharge Diet: Advance as tolerated Discharge Activity: Resume usual activity Activity Restrictions/Additional Instructions: Education about avoid constipation and appropriate hydration Return back to work this coming 09/02/2019 Patient can be discharged home today once his comfortable and tolerating well p.o. Attestations Medical Necessity Statement*: Observation status Time Spent in Patient Care*: greater than 30 min Quality Metrics Clinical Quality Measures: During this hospital stay, did patient experience: None Coding Level of Care Code Acute Community Service Specialist for Chg Fwd Diagnoses Small bowel obstruction K56.609
[2019-08-29 14:57] VITALS: BP 105/71; PULSE 88; RESP 20; TEMP 36.7; O2SAT 98
== END 2019-08-29 14:58 | disposition home or self-care (01) ==
LOC: ER 10:37 → MEDSURG 11:06
PROVIDERS: Family Medicine; Admitting Provider Surgery; Emergency Provider Nurse Practitioner Family; Family Provider Physician Assistant Medical; Visit Provider Surgery
DX: K56.609 Unspecified intestinal obstruction, unspecified as to partial versus complete obstruction (principal)
CPT/HCPCS: 12345; 36415; 71045; 74019; 74177; 80053; 81001; 83605; 83690; 85025; 85610; 85730; 87086; 96360; 96361; 96372; 96374; 96375; 99283; 99285; A9270; G0378; J1650; J2270; J2405; J7030; J7799; Q9967

== ENCOUNTER → 2019-11-27 14:36 | Outpatient (BNVA) | payer OTHER, SELFPAY | PROVIDERS: Family Provider Physician Assistant Medical; Visit Provider Nurse Practitioner Family | DX: Z11.59 Encounter for screening for other viral diseases (principal) | CPT/HCPCS: 87635 ==

== ENCOUNTER 2023-08-21 13:04 | Outpatient (RCR) | payer SELFPAY | END 2023-08-22 23:59 | disposition home or self-care (01) | LOC: SPT 13:04 | PROVIDERS: PCP Family Medicine; Visit Provider Family Medicine | DX: H81.10 Benign paroxysmal vertigo, unspecified ear (principal) | CPT/HCPCS: 95992; 97161 ==

== ENCOUNTER 2023-08-23 06:00 | Outpatient (RCR) | payer SELFPAY | END 2023-09-22 23:59 | disposition home or self-care (01) | LOC: SPT 06:00 | PROVIDERS: PCP Family Medicine; Visit Provider Family Medicine | DX: H81.10 Benign paroxysmal vertigo, unspecified ear (principal) | CPT/HCPCS: 95992 ==

== ENCOUNTER 2023-10-24 15:39 | Emergency (ER) | payer SELFPAY ==
[2023-10-24] VITALS (9 sets, daily range): BP systolic 113–173; BP diastolic 69–113; PULSE 71–93; RESP 16–17; TEMP 36.8; O2SAT 94–98; BMI 33.5
[2023-10-24 15:58] LABS: Glucose Point of Care 94 mg/dL (70-110)
--- NOTE | 2023-10-24 16:28 | CTR_ITS ---
PROCEDURE INFORMATION: Exam: CTA Head With Contrast, Arteriography Exam date and time: 10/24/2023 4:53 PM Age: 27 years old Clinical indication: Patient HX: Right side weakness; Additional info: R facial numbness, arm/leg numbness TECHNIQUE: Imaging protocol: Computed tomographic angiography of the head with contrast. Exam focused on the arteries. 3D rendering (Not supervised by radiologist): MIP and/or 3D reconstructed images were created by the technologist. Radiation optimization: All CT scans at this facility use at least one of these dose optimization techniques: automated exposure control; mA and/or kV adjustment per patient size (includes targeted exams where dose is matched to clinical indication); or iterative reconstruction. Contrast material: OMNI 350; Contrast volume: 100 ml; Contrast route: INTRAVENOUS (IV); COMPARISON: CT head thrombolytic [id number] 10/24/2023 4:49 PM RADIATION DOSE METRICS: Total DLP (mGy-cm): 657 FINDINGS: ANTERIOR CIRCULATION: Right internal carotid artery: No significant stenosis or aneurysm is seen involving the petrous, cavernous, or supraclinoid right internal caroid artery. Right middle cerebral artery: No occlusion or significant stenosis. No aneurysm. Right anterior cerebral artery: No occlusion or significant stenosis. No aneurysm. Left internal carotid artery: No significant stenosis or aneurysm is seen involving the petrous, cavernous, or supraclinoid left internal caroid artery. Left middle cerebral artery: No occlusion or significant stenosis. No aneurysm. Left anterior cerebral artery: No occlusion or significant stenosis. No aneurysm. POSTERIOR CIRCULATION: Right vertebral artery: Intradural right vertebral artery demonstrates no occlusion or significant stenosis. No aneurysm. Left vertebral artery: Intradural left vertebral artery demonstrates no occlusion or significant stenosis. No aneurysm. Basilar artery: No occlusion or significant stenosis. No aneurysm. Right posterior cerebral artery: No occlusion or significant stenosis. No aneurysm. Left posterior cerebral artery: No occlusion or significant stenosis. No aneurysm. Brain: No acute confluent lobar infarct, acute parenchymal hemorrhage or mass effect. Cerebral ventricles: No ventriculomegaly. Bones/joints: Unremarkable. No acute fracture. Soft tissues: Visualized soft tissues are unremarkable. PROCEDURE INFORMATION: Exam: CTA Neck With Contrast Exam date and time: 10/24/2023 4:53 PM Age: 27 years old Clinical indication: Patient HX: Right side weakness; Additional info: R facial numbness, arm/leg numbness TECHNIQUE: Imaging protocol: Computed tomographic angiography of the neck with contrast. Exam focused on the cervical segments of the vasculature. 3D rendering (Not supervised by radiologist): MIP and/or 3D reconstructed images were created by the technologist. Radiation optimization: All CT scans at this facility use at least one of these dose optimization techniques: automated exposure control; mA and/or kV adjustment per patient size (includes targeted exams where dose is matched to clinical indication); or iterative reconstruction. Contrast material: OMNI 350; Contrast volume: 100 ml; Contrast route: INTRAVENOUS (IV); COMPARISON: CT head thrombolytic [id number] 10/24/2023 4:49 PM RADIATION DOSE METRICS: Total DLP (mGy-cm): 657 FINDINGS: Right common carotid artery: No stenosis. No dissection or occlusion. Right internal carotid artery: No significant stenosis seen by NASCET criteria. No dissection or occlusion. Right external carotid artery: No occlusion or stenosis of the origin. Left common carotid artery: No stenosis. No dissection or occlusion. Left internal carotid artery: No significant stenosis seen by NASCET criteria. No dissection or occlusion. Left external carotid artery: No occlusion or stenosis of the origin. Right vertebral artery: No cervical vertebral artery stenosis. No dissection or occlusion. The right vertebral artery is the dominant vertebral artery. Left vertebral artery: No cervical vertebral artery stenosis. No dissection or occlusion. Soft tissues: Ill-defined triangular shaped soft tissue in the anterior mediastinum may be related to residual thymic tissue. Recommend clinical correlation. Bones/joints: No acute bony abnormality. CT/CT angio headneck* [id number] IMPRESSION: No intracranial large vessel arterial stenosis or occlusion. IMPRESSION: 1. No significant cervical arterial stenosis or occlusion. 2. Ill-defined triangular shaped soft tissue in the anterior mediastinum may be related to residual thymic tissue. Recommend clinical correlation. REFERENCES: NASCET CRITERIA. The degree of stenosis in the cervical segment of the internal carotid artery is based on NASCET criteria. Normal is no stenosis. Mild is less than 50% stenosis. Moderate is 50-69% stenosis. Severe is 70% to 99% stenosis. Total occlusion is no detectable patent lumen.
--- NOTE | 2023-10-24 16:28 | CTR_ITS ---
PROCEDURE INFORMATION: Exam: CT Head Without Contrast Exam date and time: 10/24/2023 4:49 PM Age: 27 years old Clinical indication: Stroke-like symptoms; Other: Right side of body weakness; Additional info: R facial numbness; Arm/leg weakness TECHNIQUE: Imaging protocol: Computed tomography of the head without contrast. Radiation optimization: All CT scans at this facility use at least one of these dose optimization techniques: automated exposure control; mA and/or kV adjustment per patient size (includes targeted exams where dose is matched to clinical indication); or iterative reconstruction. Other technique: STROKE PROTOCOL was implemented. COMPARISON: No relevant prior studies available. RADIATION DOSE METRICS: Total DLP (mGy-cm): 1092 FINDINGS: Brain: No acute intracranial hemorrhage. No confluent lobar infarct. No mass effect. Cerebral ventricles: The ventricles and sulci are normal in size and shape for the patient's stated age. Paranasal sinuses: Visualized sinuses are unremarkable. No fluid levels. Mastoid air cells: Visualized mastoid air cells are well aerated. Bones: No acute calvarial fracture. Soft tissues: Visualized soft tissues are unremarkable. CT/CT head thrombolytic [id number] IMPRESSION: No acute intracranial abnormality. If symptoms persist, consider further evaluation with MRI, if MRI is clinically safe to obtain. ASSESSMENT: ASPECTS ([facility] Stroke Program Early CT Score) is 10.
--- NOTE | 2023-10-24 16:29 | ED_ITS ---
Documented by User: OLGA Rodriguez 10/24/23 16:48 HPI - Neuro Symptoms/Deficit 2 General: Chief Complaint: Headache Stated Complaint: headache facial numbness right side weakness Time Seen by Provider: 10/24/23 16:05 Source: patient Mode of arrival: ambulatory Limitations: no limitations History of Present Illness: Patient is a 27-year-old male presents to ED today for evaluation of chronic neurologic complaints. Negative previous documentation back in February 2023 he presented with complaints of right-sided facial numbness and some dizziness. Since then he has had multiple other visits on 03/2023, 07/2023, 09/2023, and clinic today before being referred here. Essentially has had multiple episodes of right-sided facial numbness. He states he will occasionally have for right- sided arm and leg numbness as well and feels like he loses dexterity. He states symptoms are occasionally associated with a headache. He states episodes will last approximately 2 weeks but states they slowly fade out over this time period. He has not noticed any significant facial drooping. He has never had any type of seizure-like activity. No issues with urinary retention or incontinence. Onset (ago): month(s) Location: right face, right arm and right leg History of same: Yes Quality: numb and tingling Relieving factors: time Exacerbating factors: none On Anticoagulants: No Associated symptoms: Reports no associated symptoms and headache(s); Deny chest pain, malaise, nausea, syncope or vomiting Treatments Prior to Arrival: none Review of Systems 2 Const: Denies: fever(s), chills, body aches, fatigue or malaise Eyes: Reports: other (reports some previous L periorbital pain and eye dryness); Denies: change in vision, blurry vision, photophobia, floaters or seeing flashes ENMT: Denies: throat pain, odynophagia, ear or mastoid pain, nasal discharge, nasal congestion or sinus pain Card: Denies: chest pain, palpitations, irregular heart rhythm, edema, syncope or pre-syncope Resp: Denies: dyspnea, productive cough, non-productive cough, wheezing, pain on inspiration, hemoptysis or chest congestion GI: Denies: abdominal pain, nausea, vomiting or diarrhea : Denies: flank pain, difficulty urinating, dysuria, urinary frequency, urinary urgency or urinary hesitancy Musc: Denies: neck pain, back pain, extremity pain, extremity swelling or joint pain Skin/Breast: Denies: rash Neuro: Reports: headache(s), numbness in extremities, sensory changes and dizziness; Denies: weakness in extremities, frequent falls, behavioral changes, Slurred speech present, seizure-like activity or involuntary movements PFSH ED 2 PFSH: Medical History Bipolar disorder Depression Bowel obstruction Surgical History History of bowel resection History of appendectomy Family History Mother Cancer cervical Grandmother Cancer Maternal-liver Grandmother Cancer Paternal-pancreatic Other Diabetes Hyperlipidemia Liver disease Psychiatric illness Thyroid disease Denies family history of CAD (coronary artery disease) Aneurysm Autoimmune disease Clotting disorder Dementia Chronic kidney disease (CKD) Anesthesia complication Bleeding disorder Lung disease Hypertension Stroke Social History Smoking and tobacco/nicotine status: never used tobacco/nicotine Alcohol intake: never Substance/Drug Use: never Lives independently: Yes Marital status: Single Number of children: 0 Current occupational status: employed 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 NIH stroke score 2 NIHSS: Level Of Consciousness - 1a: 0 Level Of Consciousness Questions - 1b: Both Correct Level Of Consciousness Commands - 1c: Both Correct Best Gaze - 2: Normal Visual Gallagher - 3: No Visual Loss Facial Palsy - 4: N ormal Motor Arm Right - 5: No Drift Motor Arm Left - 5: No Drift Motor Leg Right - 6: No Drift Motor Leg Left - 6: No Drift Limb Ataxia - 7: A bsent Sensory - 8: Normal Best Language - 9: No Aphasia Dysarthia - 10: Normal Extinction And Inattention - 11: 0 Score: Total Score: 0 Physical Exam 2 Const: COMMON NORMALS: no acute distress, patient oriented x3, no limitations, alert and well nourished GENERAL APPEARANCE: cooperative NUTRITIONAL APPEARANCE: obese ORIENTATION/CONSCIOUSNESS: Yes awake, Yes oriented to person, Yes oriented to place and Yes oriented to time HENMT: COMMON NORMALS: normocephalic and atraumatic HEAD & SCALP: normal to inspection, normocephalic and atraumatic FACE & SINUS: normal facial exam and sinuses nontender Eye: COMMON NORMALS: Equal, round and reactive pupils present and EOMs intact bilaterally GENERAL EYE: appearance normal, both eyes and all related structures and normal light reflex PUPIL: Yes Equal, round and reactive pupils present DIRECT OPHTHALMOSCOPY: Yes normal light reflex Neck/C-Spine: COMMON NORMALS: full ROM, no lymphadenopathy and no meningeal signs GENERAL: Yes normal visual inspection, No anterior neck swelling and No submandibular swelling Resp: COMMON NORMALS: normal respiratory effort and clear to auscultation bilaterally AUSCULTATION: clear to auscultation bilaterally Cardio: COMMON NORMALS: regular rate and regular rhythm RATE: regular rate RHYTHM: regular rhythm Extremity: GENERAL: Yes normal exam except as noted Neuro: DARELL COMA SCALE: document GCS findings [place] coma scale eye opening: Spontaneous Darell coma scale verbal response: Orientated Darell coma scale motor response: Obey commands Darell coma scale total score: 15 COMMON NORMALS: patient oriented x3 and CN's II-XII intact bilaterally S ENSORIUM/ORIENTATION: Yes alert, Yes oriented to person, Yes oriented to place and Yes oriented to time MENINGEAL SIGNS: Yes no meningeal signs C OORDINATION/BALANCE: [id number] test normal SPEECH: speech normal M OTOR EXAM: 5/5 motor strength present throughout COORDINATION: [id number] test normal Skin: COMMON NORMALS: no rashes or lesions noted GENERAL SKIN EXAM: no rashes or lesions noted Course 2 Vital Signs: Vital signs: Vital Signs Temperature 98.2 F 10/24/23 15:44 Pulse Rate 83 10/24/23 18:00 Respiratory Rate 17 10/24/23 18:00 Blood Pressure 146/103 10/24/23 18:00 Pulse Oximetry 98 10/24/23 18:00 Oxygen Delivery Me thod Room Air 10/24/23 18:00 MDM - Neuro Symptoms/Deficit Lab Data 10/24/23 16:47 10/24/23 16:[address] 10/24/23 16:28 IMPRESSION: No acute intracranial abnormality. If symptoms persist, consider further evaluation with MRI, if MRI is clinically safe to obtain. ASSESSMENT: ASPECTS ([place] Stroke Program Early CT Score) is 10. ADDENDUM: 10/24/23 5350 ADDENDUM: THIS REPORT CONTAINS FINDINGS THAT MAY BE CRITICAL TO PATIENT CARE. The findings were verbally communicated via telephone conference with Arabella Wang at 5:05 PM CDT on 10/24/2023. The findings were acknowledged and understood. Head/Neck CTA 10/24/23 16:28 IMPRESSION: No intracranial large vessel arterial stenosis or occlusion. IMPRESSION: 1. No significant cervical arterial stenosis or occlusion. 2. Ill-defined triangular shaped soft tissue in the anterior mediastinum may be related to residual thymic tissue. Recommend clinical correlation. REFERENCES: NASCET CRITERIA. The degree of stenosis in the cervical segment of the internal carotid artery is based on NASCET criteria. Normal is no stenosis. Mild is less than 50% stenosis. Moderate is 50-69% stenosis. Severe is 70% to 99% stenosis. Total occlusion is no detectable patent lumen. ADDENDUM: 10/24/23 0758 ADDENDUM: THIS REPORT CONTAINS FINDINGS THAT MAY BE CRITICAL TO PATIENT CARE. The findings were verbally communicated via telephone conference with OLGA Miller at 5:38 PM CDT on 10/24/2023. The findings were acknowledged and understood. Laboratory Results WBC 5.81 10^3/uL (3.29-11.43) 10/24/23 16:47 RBC 5.71 10^6/uL (3.85-5.65) H 10/24/23 16:47 Hgb 16.40 g/dL (11.27-16.99) 10/24/23 16:47 Hct 49.4 % (37-53) 10/24/23 16:47 MCV 86.5 fl (82-101) 10/24/23 16:47 MCH 28.7 pg (27-33) 10/24/23 16:47 MCHC 33.2 g/dL (30-55) 10/24/23 16:47 RDW 11.9 % (12.1-15.1) L 10/24/23 16:47 Plt Count 291 10^3/cmm (157-399) 10/24/23 16:47 MPV 11.0 fL (7.4-10.4) H 10/24/23 16:47 Neut % (Auto) 60.7 % 10/24/23 16:47 Lymph % (Auto) 31.3 % 10/24/23 16:47 [place] % (Auto) 6.4 % 10/24/23 16:47 Eos % (Auto) 1.0 % 10/24/23 16:47 Baso % (Auto) 0.3 % 10/24/23 16:47 Neut # (Auto) 3.52 10^3/uL (1.8-7.7) 10/24/23 16:47 Lymph # (Auto) 1.8 10^3/uL (0.8-4.8) 10/24/23 16:47 [place] # (Auto) 0.4 10^3/uL (0.2-0.9) 10/24/23 16:47 Eos # (Auto) 0.1 10^3/uL (0.0-0.8) 10/24/23 16:47 Baso # (Auto) 0.0 10^3/uL (0.0-0.1) 10/24/23 16:47 Nucleated RBC % (auto) 0 % 10/24/23 16:47 Nucleated RBCs # 0.0 /100WBC 10/24/23 16:47 Sodium 139 mmol/L (136-145) 10/24/23 16:47 Potassium 4.2 mmol/L (3.5-5.1) 10/24/23 16:47 Chloride 105 mmol/L (98-107) 10/24/23 16:47 Carbon Dioxide 23 mmol/L (22-29) 10/24/23 16:47 Anion Gap 15.2 (5-19) 10/24/23 16:47 BUN 10 mg/dL (6-20) 10/24/23 16:47 Creatinine 0.9 mg/dL (0.7-1.2) 10/24/23 16:47 GFR Calculation 102.0 mL/min (90-130) 10/24/23 16:47 Glucose 99 mg/dL (65-115) 10/24/23 16:47 POC Glucose 94 mg/dL (70-110) 10/24/23 15:56 Calculated Osmolality 287 mOsm/kg (285-295) 10/24/23 16:47 Calcium 9.3 mg/dL (8.5-10.5) 10/24/23 16:47 Total Bilirubin 0.8 mg/dL (0.15-1.2) 10/24/23 16:47 AST 32 U/L (0-40) 10/24/23 16:47 ALT 67 U/L (0-41) H 10/24/23 16:47 Alkaline Phosphatase 75 U/L (40-130) 10/24/23 16:47 Total Protein 7.3 g/dL (6.6-8.7) 10/24/23 16:47 Albumin 4.4 g/dL (3.5-5.2) 10/24/23 16:47 Globulin 2.9 g/dL (1.3-4.6) 10/24/23 16:47 Discharge Plan Discharge Patient Disposition: Home Clinical Impression: Atypical migraine Condition: Stable Prescriptions: No Action promethazine 25 mg tablet 25 mg PO TID PRN (Reason: nausea and vomiting) Qty: 30 1RF Discharge Orders: Discharge ED (Routine); Ordered 10/24/23 Ordered By: Taurus Miller Referrals: Doc Clinton MD [Primary Care Provider] - Discharge Diet: Usual diet Discharge Activity: Increase activity as tolerated Patient Instructions: Migraine Headache (ED) Activity Restrictions/Additional Instructions: Follow-up with neurology as discussed. Also follow-up with primary care for further evaluation. Please return with any new or concerning symptoms you may have. Plenty of fluids. Sign Out Sign Out Data: Patient Sign Out occurred on 10/24/23 at 17:07. Patient's care was discussed, and care was transferred from OLGA Rodriguez to OLGA Moore. Coding Level of Care Code ED Computerized Mill Recorder for Chg Fwd Documented by User: OLGA Moore 10/24/23 18:17 HPI - Neuro Symptoms/Deficit 2 General: Chief Complaint: Headache Stated Complaint: headache facial numbness right side weakness Time Seen by Provider: 10/24/23 16:05 PFSH ED 2 PFSH: Medical History Bipolar disorder Depression Bowel obstruction Surgical History History of bowel resection History of appendectomy Family History Mother Cancer cervical Grandmother Cancer Maternal-liver Grandmother Cancer Paternal-pancreatic Other Diabetes Hyperlipidemia Liver disease Psychiatric illness Thyroid disease Denies family history of CAD (coronary artery disease) Aneurysm Autoimmune disease Clotting disorder Dementia Chronic kidney disease (CKD) Anesthesia complication Bleeding disorder Lung disease Hypertension Stroke Social History Smoking and tobacco/nicotine status: never used tobacco/nicotine Alcohol intake: never Substance/Drug Use: never Lives independently: Yes Marital status: Single Number of children: 0 Current occupational status: employed 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 Patient arrived with symptoms of an atypical migraine, CT and CTA were ordered to rule out any stroke or acute findings. These were both negative. His neurological exam was normal. His CBC and CMP both unremarkable. I spoke with his primary care provider, Dr. Clinton, to coordinate care and he agrees that this is presenting as an atypical migraine and we should try to treat with migraine cocktail at this time. He also will see the patient back in his office, and agrees that a neurologic referral would be beneficial. I relayed this to the patient, who agrees with this plan. He does feel better after receiving the cocktail, and will be discharged home at this time. Reasons to return discussed. Lab Data 10/24/23 16:47 10/24/23 16:[address] 10/24/23 16:28 IMPRESSION: No acute intracranial abnormality. If symptoms persist, consider further evaluation with MRI, if MRI is clinically safe to obtain. ASSESSMENT: ASPECTS ([place] Stroke Program Early CT Score) is 10. ADDENDUM: 10/24/23 1707 ADDENDUM: THIS REPORT CONTAINS FINDINGS THAT MAY BE CRITICAL TO PATIENT CARE. The findings were verbally communicated via telephone conference with Arabella Wang at 5:05 PM CDT on 10/24/2023. The findings were acknowledged and understood. Head/Neck CTA 10/24/23 16:28 IMPRESSION: No intracranial large vessel arterial stenosis or occlusion. IMPRESSION: 1. No significant cervical arterial stenosis or occlusion. 2. Ill-defined triangular shaped soft tissue in the anterior mediastinum may be related to residual thymic tissue. Recommend clinical correlation. REFERENCES: NASCET CRITERIA. The degree of stenosis in the cervical segment of the internal carotid artery is based on NASCET criteria. Normal is no stenosis. Mild is less than 50% stenosis. Moderate is 50-69% stenosis. Severe is 70% to 99% stenosis. Total occlusion is no detectable patent lumen. ADDENDUM: 10/24/23 1740 ADDENDUM: THIS REPORT CONTAINS FINDINGS THAT MAY BE CRITICAL TO PATIENT CARE. The findings were verbally communicated via telephone conference with OLGA Miller at 5:38 PM CDT on 10/24/2023. The findings were acknowledged and understood. Laboratory Results WBC 5.81 10^3/uL (3.29-11.43) 10/24/23 16:47 RBC 5.71 10^6/uL (3.85-5.65) H 10/24/23 16:47 Hgb 16.40 g/dL (11.27-16.99) 10/24/23 16:47 Hct 49.4 % (37-53) 10/24/23 16:47 MCV 86.5 fl (82-101) 10/24/23 16:47 MCH 28.7 pg (27-33) 10/24/23 16:47 MCHC 33.2 g/dL (30-55) 10/24/23 16:47 RDW 11.9 % (12.1-15.1) L 10/24/23 16:47 Plt Count 291 10^3/cmm (157-399) 10/24/23 16:47 MPV 11.0 fL (7.4-10.4) H 10/24/23 16:47 Neut % (Auto) 60.7 % 10/24/23 16:47 Lymph % (Auto) 31.3 % 10/24/23 16:47 [place] % (Auto) 6.4 % 10/24/23 16:47 Eos % (Auto) 1.0 % 10/24/23 16:47 Baso % (Auto) 0.3 % 10/24/23 16:47 Neut # (Auto) 3.52 10^3/uL (1.8-7.7) 10/24/23 16:47 Lymph # (Auto) 1.8 10^3/uL (0.8-4.8) 10/24/23 16:47 [place] # (Auto) 0.4 10^3/uL (0.2-0.9) 10/24/23 16:47 Eos # (Auto) 0.1 10^3/uL (0.0-0.8) 10/24/23 16:47 Baso # (Auto) 0.0 10^3/uL (0.0-0.1) 10/24/23 16:47 Nucleated RBC % (auto) 0 % 10/24/23 16:47 Nucleated RBCs # 0.0 /100WBC 10/24/23 16:47 Sodium 139 mmol/L (136-145) 10/24/23 16:47 Potassium 4.2 mmol/L (3.5-5.1) 10/24/23 16:47 Chloride 105 mmol/L (98-107) 10/24/23 16:47 Carbon Dioxide 23 mmol/L (22-29) 10/24/23 16:47 Anion Gap 15.2 (5-19) 10/24/23 16:47 BUN 10 mg/dL (6-20) 10/24/23 16:47 Creatinine 0.9 mg/dL (0.7-1.2) 10/24/23 16:47 GFR Calculation 102.0 mL/min (90-130) 10/24/23 16:47 Glucose 99 mg/dL (65-115) 10/24/23 16:47 POC Glucose 94 mg/dL (70-110) 10/24/23 15:56 Calculated Osmolality 287 mOsm/kg (285-295) 10/24/23 16:47 Calcium 9.3 mg/dL (8.5-10.5) 10/24/23 16:47 Total Bilirubin 0.8 mg/dL (0.15-1.2) 10/24/23 16:47 AST 32 U/L (0-40) 10/24/23 16:47 ALT 67 U/L (0-41) H 10/24/23 16:47 Alkaline Phosphatase 75 U/L (40-130) 10/24/23 16:47 Total Protein 7.3 g/dL (6.6-8.7) 10/24/23 16:47 Albumin 4.4 g/dL (3.5-5.2) 10/24/23 16:47 Globulin 2.9 g/dL (1.3-4.6) 10/24/23 16:47 All radiology interpretation(s) finalized by discharge Discharge Plan Discharge Patient Disposition: Home Clinical Impression: Atypical migraine Condition: Stable Prescriptions: No Action promethazine 25 mg tablet 25 mg PO TID PRN (Reason: nausea and vomiting) Qty: 30 1RF Discharge Orders: Discharge ED (Routine); Ordered 10/24/23 Ordered By: Taurus Miller Referrals: Doc Clinton MD [Primary Care Provider] - Discharge Diet: Usual diet Discharge Activity: Increase activity as tolerated Patient Instructions: Migraine Headache (ED) Activity Restrictions/Additional Instructions: Follow-up with neurology as discussed. Also follow-up with primary care for further evaluation. Please return with any new or concerning symptoms you may have. Plenty of fluids. Sign Out Sign Out Data: Patient Sign Out occurred on 10/24/23 at 17:07. Patient's care was discussed, and care was transferred from OLGA Rodriguez to OLGA Moore. Coding Level of Care Code ED Computerized Mill Recorder for Funmi Pruitt
[2023-10-24 16:52] LABS: Basophils % 0.3 %; Eosinophils # 0.1 10^3/uL (0.0-0.8); Hematocrit 49.4 % (37-53); Lymphocytes # 1.8 10^3/uL (0.8-4.8); Lymphocytes % 31.3 %; Mean Corpuscular HGB Conc 33.2 g/dL (30-55); Mean Corpuscular Hemoglobin 28.7 pg (27-33); Mean Corpuscular Volume 86.5 fl (82-101); Monocytes # 0.4 10^3/uL (0.2-0.9); Monocytes % 6.4 %; Neutrophils # 3.52 10^3/uL (1.8-7.7); Neutrophils % 60.7 %; Nucleated Red Blood Cells % 0 %; Platelet Count 291 10^3/cmm (157-399); Red Blood Count 5.71 10^6/uL (3.85-5.65); Red Cell Distribution Width 11.9 % (12.1-15.1); White Blood Count 5.81 10^3/uL (3.29-11.43)
[2023-10-24] MEDS: iohexol 350 mg/mL 500 mL Btl (per mL) IV (17:05)
--- NOTE | 2023-10-24 17:05 | ECG_ITS ---
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 Measurements Intervals [place] Rate: 81 P: 66 KS: 159 QRS: 45 QRSD: 85 T: 31 QT: 355 QTc: 412 Interpretive Statements SINUS RHYTHM No previous ECG available for comparison Electronically Signed On 10-24-2023 22:15:37 CDT by Tiffanie Kasper M.D. [email or web address]
[2023-10-24 17:52] LABS: Alanine Aminotransferase 67 U/L (0-41); Albumin Level 4.4 g/dL (3.5-5.2); Alkaline Phosphatase 75 U/L (40-130); Anion Gap 15.2 (5-19); Aspartate Amino Transferase 32 U/L (0-40); Blood Urea Nitrogen 10 mg/dL (6-20); Calcium 9.3 mg/dL (8.5-10.5); Carbon Dioxide 23 mmol/L (22-29); Chloride 105 mmol/L (98-107); Creatinine Clr Calc Pharmacy 156.0899; Globulin 2.9 g/dL (1.3-4.6); Glucose 99 mg/dL (65-115); Osmolality Calculated 287 mOsm/kg (285-295); Potassium 4.2 mmol/L (3.5-5.1); Sodium 139 mmol/L (136-145); Total Bilirubin 0.8 mg/dL (0.15-1.2); Total Protein 7.3 g/dL (6.6-8.7)
[2023-10-24] MEDS: sodium chloride 0.9% 1,000 ML 999 ML IV (17:54)
[2023-10-24] MEDS: ondansetron 2 mg/ML SDV 2 mL 4 MG IVP (17:56)
[2023-10-24] MEDS: dexamethasone 10 mg/mL INJ 8 MG IVP (17:59)
[2023-10-24] MEDS: ketorolac 60 mg/2 mL INJ 30 MG IVP (18:03)
[2023-10-24] MEDS: diphenhydrAMINE 50 mg/mL SDV 1mL IVP (18:05)
--- NOTE | 2023-10-26 09:53 | DCPLANNER ---
messaged neuro for er f/u
== END 2023-10-24 19:16 | disposition home or self-care (01) ==
PROVIDERS: Physician Assistant; Emergency Provider Physician Assistant; PCP Family Medicine
DX: G43.809 Other migraine, not intractable, without status migrainosus (principal)
CPT/HCPCS: 36416; 70450; 70496; 70498; 80053; 82962; 85025; 93005; 96361; 96374; 96375; 99285; J1100; J1200; J1885; J2405; J7030; Q9967

== ENCOUNTER → 2023-11-16 08:48 | Outpatient (BNVA) | payer SELFPAY | PROVIDERS: PCP Family Medicine; Referring Provider Family Medicine; Visit Provider Psychiatry & Neurology Neurology | DX: G43.909 Migraine, unspecified, not intractable, without status migrainosus (principal); R53.1 Weakness; R20.0 Anesthesia of skin; R20.2 Paresthesia of skin; F51.04 Psychophysiologic insomnia | CPT/HCPCS: 36415; 82085; 82306; 82607; 82746; 83090; 83735; 83921; 84155; 84165; 84439; 84443; 84481; 85300; 85613; 85651; 85730; 86140; 86146; 86160; 86162; 86235; 86255; 86376; 86592 ==

== ENCOUNTER 2023-12-05 14:16 | Outpatient (CLI) | payer SELFPAY ==
--- NOTE | 2023-12-05 14:30 | CT_ITS ---
WS: [id number] CT chest w con* [id number] HISTORY: G43.909 - Migraine, unspecified, not intractable, without... TECHNIQUE: Axial imaging performed through the thorax. Coronal and sagittal reformats are submitted. All CT scans at [facility] use at least one of these dose optimization techniques: automated exposure control; mA and/or kV adjustment per patient size (includes targeted exams where dose is mat ched to clinical indication); or iterative reconstruction. CONTRAST: Omnipaque 350; 100 mL IV. DLP: 589.92 mGy.cm COMPARISON: Prior CT angiogram 10/24/2023 Lungs and central airway: Normal. Pleura: Normal. No pleural effusion. Heart and pericardium: Normal size heart with no pericardial effusion. Mediastinum and ny: No adenopathy. Reidentified is a low-attenuation mass in the anterior mediastin um slightly triangular in shape and conforming to the mediastinum. Mass measures 1.2 x 1.4 cm. This i s most likely residual thymic tissue. Vessels: Normal size aortic and pulmonary artery. No coronary artery calcifications. Chest wall and lower neck: No soft tissue masses. Upper abdomen: Contracted gallbladder. There are multiple small hyperdense nodules within the gallbla dder. These may be stones or polyps. These are new since the prior CT of 08/28/2019. Osseous structures: Mild straightening of the normal thoracic kyphosis. CT/CT chest w con* [id number] IMPRESSION: 1. Low-attenuation mass in the anterior mediastinum has a configuration appear ance of residual thymic tissue measuring 1.2 x 1.4 cm. 2. No adenopathy. 3. Multiple dense foci in the gallbladder. Gallstones versus polyps. Gallbladd er can be further evaluated by RIGHT upper quadrant ultrasound.
[2023-12-05] MEDS: iohexol 350 mg/mL 500 mL Btl (per mL) IV (14:54)
== END 2023-12-05 14:17 | disposition home or self-care (01) ==
LOC: RAD 14:16
PROVIDERS: PCP Family Medicine; Visit Provider Psychiatry & Neurology Neurology
DX: G43.909 Migraine, unspecified, not intractable, without status migrainosus (principal); K80.20 Calculus of gallbladder without cholecystitis without obstruction; R53.1 Weakness; H81.10 Benign paroxysmal vertigo, unspecified ear; F51.04 Psychophysiologic insomnia; F31.30 Bipolar disorder, current episode depressed, mild or moderate severity, unspecified; E66.9 Obesity, unspecified; R20.0 Anesthesia of skin; R20.2 Paresthesia of skin; R22.2 Localized swelling, mass and lump, trunk
CPT/HCPCS: 71260; Q9967

== ENCOUNTER 2023-12-27 13:45 | Outpatient (CLI) | payer SELFPAY ==
--- NOTE | 2023-12-27 13:45 | MR_ITS ---
WS: [id number] MRI HEAD WITH CONTRAST TECHNIQUE: Sagittal T1, T2 axial, T2 axial FLAIR, axial susceptibility weighted imaging, axial diffus ion weighted images, and coronal T2 images were obtained. Pre and post-T1 axial and post T1 coronal i mages. ADC and FSPGR images. CLINICAL INFORMATION: G43.909 - Migraine, unspecified, not intractable, without... COMPARISON: CT head 10/24/2023 and MRI cervical 12/27/2023 FINDINGS: No evidence of restricted diffusion to suggest acute ischemia. Ventricular system and basilar cistern s are patent. Several small callosal and pericallosal T2 hyperintense lesions suspicious for demyelin ating disease with associated T1 hypointensity. In addition prominent bilateral T2 hyperintense lesio ns in the bilateral brachium pontis and LEFT midbrain also suspicious for demyelinating disease. Asso ciated T1 hypointensity with these larger lesions. No abnormal gadolinium enhancement to indicate act emmanuel demyelination. No hemosiderin on susceptibility-weighted images. Normal optic chiasm and pituitary infundibulum. Tem poral lobes and hippocampal formations are normal in appearance. No significant parenchymal volume lo ss. Normal vascular flow voids at the skull base. No extra-axial fluid collections. Paranasal sinuses and mastoid air cells are well aerated. Normal posterior nasopharynx. MR/MR head wo/w con [id number] IMPRESSION: 1. Patchy supra and infratentorial white matter changes some in a pericallosal distribution with involvement of the corpus callosum compatible with demyelina ting disease. 2. No enhancing lesions to indicate active disease. 3. Mild T1 hypointense lesion load. 4. No other acute findings.
--- NOTE | 2023-12-27 14:30 | MR_ITS ---
WS: [id number] MR CERVICAL SPINE WO/W COMPARISON: None. HISTORY: R53.1 - Weakness TECHNIQUE: Sagittal T1, T2 and T2 inversion recovery; axial T2, T2 gradient and fiesta. Post gadolini um imaging with fat saturation technique. FINDINGS: Some images degraded by patient. Straightening of the normal cervical lordosis. No high grade central canal narrowing. Several periphe ral T2 hyperintense lesions in the cervical cord most prominent at C5-6 compatible with demyelinating disease. No enhancing lesions indicate active disease. No significant cord atrophy. C2-3: Spinal canal and foramen are patent. C3-4: Spinal canal and foramen are patent. C4-5: Spinal canal and foramen are patent. C5-6: Minimal disc bulging. Spinal canal and foramen are patent. Chronic demyelinating plaque in the dorsal cord. C6-7: Mild LEFT bony foraminal narrowing. Mild facet arthropathy. Spinal canal and RIGHT foramen are patent. C7-T1: Mild LEFT bony foraminal narrowing. Spinal canal and RIGHT foramen are patent. Mild facet arth ropathy. Chronic demyelinating plaques in the brachium pontis and midbrain described on the MRI brain MR/MR cervical spine wo/w [id number] IMPRESSION: 1. Chronic demyelinating plaque in the cervical cord at C5-6. 2. No abnormal gadolinium enhancement to indicate active disease. 3. No significant cord atrophy.
[2023-12-27] MEDS: gadobenate dimeglumine 20 mL vial IV (14:43)
== END 2023-12-27 13:46 | disposition home or self-care (01) ==
PROVIDERS: PCP Family Medicine; Visit Provider Psychiatry & Neurology Neurology
DX: G37.9 Demyelinating disease of central nervous system, unspecified (principal); R90.82 White matter disease, unspecified; G43.909 Migraine, unspecified, not intractable, without status migrainosus; R53.1 Weakness; R20.0 Anesthesia of skin; R20.2 Paresthesia of skin; M54.2 Cervicalgia
CPT/HCPCS: 36415; 70553; 72156; 82085; 82306; 82607; 82746; 83090; 83735; 83921; 84155; 84165; 84439; 84443; 84481; 85300; 85613; 85651; 85730; 86140; 86146; 86160; 86162; 86235; 86255; 86376; 86592

== ENCOUNTER 2024-01-04 07:45 | Outpatient (CLI) | payer SELFPAY ==
--- NOTE | 2024-01-04 08:00 | US_ITS ---
WS: [id number] RIGHT UPPER QUADRANT ULTRASOUND HISTORY: K80.20 - Calculus of gallbladder without cholecystitis wi... COMPARISON: None available. Liver: 17.7 cm in length. Mildly enlarged liver with mild hepatic steatosis. No mass or bile duct dil atation. Portal Vein: Normal hepatopetal flow with monophasic waveform. Gallbladder: Gallbladder is slightly contracted with a stone near the neck. CBD: 0.4 cm Pancreas: Partially visualized. Head and tail are not visualized well. Right kidney: 10.8 cm in length. Normal size and echogenicity. No hydronephrosis or mass. Aorta and IVC: Unremarkable abdominal aorta and IVC. No ascites. US/US gall bladder [id number] IMPRESSION: Cholelithiasis without acute cholecystitis. No bile duct dilatation. Mild hepatic steatosis and mild hepatomegaly.
== END 2024-01-04 07:46 | disposition home or self-care (01) ==
LOC: RAD 07:45
PROVIDERS: PCP Family Medicine; Visit Provider Psychiatry & Neurology Neurology
DX: K80.20 Calculus of gallbladder without cholecystitis without obstruction (principal)
CPT/HCPCS: 76705; 99204

== ENCOUNTER 2024-01-08 09:45 | Outpatient (CLI) | payer SELFPAY ==
--- NOTE | 2024-01-08 10:00 | FL_ITS ---
WS: [id number] LUMBAR PUNCTURE CLINICAL INFORMATION: R20.0 - Anesthesia of skin TECHNIQUE: Informed consent: The procedure and its potential risk and complications were discussed with the sandra ent. Verbal and written consent was obtained. Timeout: A timeout was performed to confirm correct patient, procedure, and site. Patient was prepped and draped in the usual sterile fashion. Lidocaine 1% was used for local anesthes ia. Utilizing fluoroscopic guidance, a 3.5 inch 22-gauge spinal needle was advanced into the subarach noid space at L3-L4 via LEFT oblique sublaminar approach. Free flow of clear CSF was obtained. 13 cc of CSF was collected and sent the lab for further analysis. FLUOROSCOPIC TIME: 2min [id number] # of spot films: 1 FL/FL guided lumbarpunc dx* [id number] IMPRESSION: 1. Fluoroscopically guided lumbar puncture. No immediate complications 2. Opening pressure 13 cm of water
[2024-01-08 12:06] LABS: Appearance CSF CLEAR (CLEAR); Color CSF COLORLESS (COLORLESS); PATH Referral YES
[2024-01-08 12:09] LABS: Mononuclear WBC CSF % 83 % (50-90); Polynuclear WBC CSF % 17 % (0-10); Red Blood Cell CSF 0 10^3/uL (0-0); White Blood Cell CSF 6 /uL (0-5)
[2024-01-08 12:20] LABS: Glucose CSF 59 mg/dL (40-70); Total Protein CSF 27 mg/dL (15-45)
[2024-01-09 07:59] LABS: Toxoplasma AB IGG <7.20 IU/mL; Toxoplasma AB IGM <8.00 AU/mL
[2024-01-10 20:50] LABS: CMV DNA By PCR Not Detected (Not Detected); CMV DNA, QN PCR Not Detected Log IU/mL (Not Detected); SOURCE Results Below
[2024-01-10 21:00] LABS: Epstein Barr Virus DNA PCR Not Detected Log cps/mL (Not Detected); Epstein Barr Virus DNA QN PCR Not Detected copies/mL (Not Detected); Epstein Barr Virus Source Results Below
[2024-01-11 04:25] LABS: JC Virus DNA Ultra QN PCR NOT DETECTED Log IU/mL; JC Virus Quant CSF PCR NOT DETECTED
== END 2024-01-08 09:46 | disposition home or self-care (01) ==
LOC: RAD 09:46
PROVIDERS: PCP Family Medicine; Visit Provider Psychiatry & Neurology Neurology
DX: G43.909 Migraine, unspecified, not intractable, without status migrainosus (principal); R20.0 Anesthesia of skin; R20.2 Paresthesia of skin; H81.10 Benign paroxysmal vertigo, unspecified ear; R53.1 Weakness; F51.04 Psychophysiologic insomnia; F31.30 Bipolar disorder, current episode depressed, mild or moderate severity, unspecified
CPT/HCPCS: 62328; 80503; 82040; 82042; 82164; 82784; 82945; 83519; 83916; 84157; 86403; 86592; 86777; 87015; 87070; 87075; 87116; 87205; 87206; 87327; 87496; 87798; 87799; 87801; 89050

== ENCOUNTER → 2024-01-22 13:32 | Outpatient (BNVA) | payer BC, MEDICAID, SELFPAY | PROVIDERS: PCP Family Medicine; Visit Provider Internal Medicine | DX: I49.8 Other specified cardiac arrhythmias (principal); R94.31 Abnormal electrocardiogram [ECG] [EKG]; R07.9 Chest pain, unspecified | CPT/HCPCS: 93005 ==

== ENCOUNTER 2024-02-14 07:07 | Outpatient (CLI) | payer BC, MEDICAID, SELFPAY ==
--- NOTE | 2024-02-14 07:15 | USCV_ITS ---
Radhajulianne Manny Age: 28 Gender: M : 1995 Exam Date: 02/14/2024 07:17 Ordering Phys: Gerardo Dominguez M.D ([email or web address]) Technologist: IN[employer] Exam Location: [facility] – [place] Indication: CHEST PAIN AND SHORTNESS OF BREATH BP: 130 / 91 HR: 90 Rhythm: Sinus Technical Quality: Adequate MEASUREMENTS (Male / Female) Normal Values 2D ECHO LV Diastolic Diameter PLAX 4.0 cm 4.2 - 5.9 / 3.9 - 5.3 cm IVS Diastolic Thickness 1.2 cm 0.6 - 1.0 / 0.6 - 0.9 cm IVS Systolic Thickness 1.7 cm LVPW Diastolic Thickness 1.8 cm 0.6 - 1.0 / 0.6 - 0.9 cm LVPW Systolic Thickness 2.1 cm LVOT Diameter 2.0 cm LV Ejection Fraction 2D Teich 3.1 % LV Ejection Fraction MOD 4C 62.9 % LV Ejection Fraction MOD 2C 67.3 % LV Ejection Fraction 2C AL 68.0 % LA Diameter 2.3 cm RA Systolic Volume 4C AL 16.8 ml RA Systolic Volume 4C MOD 16.0 ml LA Sys Volume AL 17.9 cm cubed LA Sys Volume Index AL 7.5 cm cubed/m squared Aorta at Sinotubular Diameter 2.6 cm IVC Diameter 1.6 cm M-MODE LA Ao Ratio MM 0.7 AV Cusp Separation MM 2.2 cm DOPPLER AV Peak Velocity 113.0 cm/s LVOT Peak Velocity 106.0 cm/s AV Area Cont Eq vti 3.5 cm squared AV Area Cont Eq pk 2.9 cm squared MV Peak Velocity 101.0 cm/s MV Area PHT 4.2 cm squared Mitral E to A Ratio 1.4 TR Peak Velocity 144.0 cm/s TR Peak Gradient 8.3 mmHg TR Mean Velocity 122.0 cm/s TR Mean Gradient 6.2 mmHg TR Velocity Time Integral 35.7 cm TV Peak E Velocity 68.0 cm/s Right Atrial Pressure 3.0 mmHg Pulmonary Artery Systolic Pressu 11.3 mmHg PV Peak Velocity 123.0 cm/s FINDINGS Left Ventricle Normal left ventricular size and systolic function, EF 67%. No regional wall motion abnormalities. Technically difficult study because of poor ultrasonic windows. Right Ventricle The right ventricle is normal in size and function. Right Atrium The right atrium is normal in size. Left Atrium The left atrium is normal in size. Mitral Valve No gross abnormalities noted Aortic Valve No gross abnormalities noted Tricuspid Valve No gross abnormalities noted Pulmonic Valve Pulmonic valve not well visualized. Pericardium Normal pericardium without effusion. Aorta Normal ascending aorta dimension. IVC Inferior vena cava not visualized. CONCLUSIONS Normal left ventricular size and systolic function, EF 67%. No regional wall motion abnormalities. Technically difficult study because of poor ultrasonic windows. No significant stenotic or regurgitant lesions There is no pericardial effusion. Technically difficult study because of the poor ultrasonic window. No similar previous studies are available for comparison Dr Tiffanie Kasper MD FACC (Electronically Signed) Final Date: 17 February 2024 17:34 S
== END 2024-02-14 07:08 | disposition home or self-care (01) ==
LOC: RAD 07:08
PROVIDERS: PCP Family Medicine; Visit Provider Internal Medicine
DX: R07.9 Chest pain, unspecified (principal); R06.02 Shortness of breath
CPT/HCPCS: 93306

== ENCOUNTER 2024-11-01 15:08 | Outpatient (CLI) | payer BC, MEDICAID, SELFPAY ==
[2024-11-01 15:37] LABS: Hematocrit 40.6 % (37-53); Hemoglobin 12.30 g/dL (11.27-16.99); Mean Corpuscular HGB Conc 30.3 g/dL (30-55); Mean Corpuscular Hemoglobin 22.9 pg (27-33); Mean Corpuscular Volume 75.5 fl (82-101); Nucleated Red Blood Cells % 0 %; Platelet Count 301 10^3/cmm (157-399); Red Blood Count 5.38 10^6/uL (3.85-5.65); White Blood Count 7.40 10^3/uL (3.29-11.43)
[2024-11-01 16:10] LABS: Alanine Aminotransferase 62 U/L (0-41); Albumin Level 4.5 g/dL (3.5-5.2); Alkaline Phosphatase 102 U/L (40-130); Anion Gap 16.1 (5-19); Aspartate Amino Transferase 40 U/L (0-40); Blood Urea Nitrogen 9 mg/dL (6-20); Calcium 9.2 mg/dL (8.5-10.5); Carbon Dioxide 23 mmol/L (22-29); Chloride 104 mmol/L (98-107); Free T4 Free Thyroxine 1.09 ng/dL (0.82-1.77); Globulin 3.0 g/dL (1.3-4.6); Glucose 119 mg/dL (65-115); Osmolality Calculated 288 mOsm/kg (285-295); Potassium 4.1 mmol/L (3.5-5.1); Sodium 139 mmol/L (136-145); Thyroid Stimulating Hormone 1.12 uIU/mL (0.27-4.20); Total Protein 7.5 g/dL (6.6-8.7)
[2024-11-01 16:58] LABS: Ferritin 8 ng/mL (30-400); Iron 24 ug/dL (59-158); Total Iron Binding Capacity 444 mcg/dl; Unsaturated Iron Binding 420 ug/dL (112-347)
== END 2024-11-01 15:09 | disposition home or self-care (01) ==
LOC: LAB 15:10
PROVIDERS: PCP Family Medicine; Visit Provider Family Medicine
DX: R68.89 Other general symptoms and signs (principal)
CPT/HCPCS: 36415; 80053; 82728; 83540; 83550; 84439; 84443; 85025

== ENCOUNTER 2024-11-20 10:45 | Oncology outpatient (recurring) (ONCR) | payer BC, MEDICAID, SELFPAY ==
[2024-11-12] MEDS: iron sucrose 200 MG in sodium chloride 0.9% (100 ml) 100 ML IV (09:42)
[2024-11-12 09:47] VITALS: BP 126/82; PULSE 90; TEMP 36.9; O2SAT 95
[2024-11-12 10:28] VITALS: BP 131/78; PULSE 100; RESP 17; TEMP 36.8; O2SAT 97
[2024-11-14 14:57] VITALS: BP 137/82; PULSE 102; RESP 18; TEMP 36.2; O2SAT 96
[2024-11-14] MEDS: iron sucrose 200 MG in sodium chloride 0.9% (100 ml) 100 ML IV (15:08)
[2024-11-14 15:58] VITALS: BP 126/79; PULSE 78; RESP 18; TEMP 36.4; O2SAT 96
[2024-11-18] MEDS: iron sucrose 200 MG in sodium chloride 0.9% (100 ml) 100 ML IV (14:13)
[2024-11-18 14:58] VITALS: BP 120/84; PULSE 85; RESP 17; TEMP 36.2; O2SAT 97
[2024-11-20] MEDS: iron sucrose 200 MG in sodium chloride 0.9% (100 ml) 100 ML IV (11:25)
[2024-11-20 11:27] VITALS: BP 135/92; PULSE 81; TEMP 36.5; O2SAT 96
[2024-11-20 12:13] VITALS: BP 134/74; PULSE 76; RESP 16
== END 2024-11-21 23:59 | disposition home or self-care (01) ==
PROVIDERS: PCP Family Medicine; Visit Provider Internal Medicine Medical Oncology
DX: D50.9 Iron deficiency anemia, unspecified (principal); Z79.899 Other long term (current) drug therapy; Z53.9 Procedure and treatment not carried out, unspecified reason
CPT/HCPCS: 96365; J1756; J7050

== ENCOUNTER 2024-11-22 09:32 | Oncology outpatient (recurring) (ONCR) | payer BC, MEDICAID, SELFPAY ==
[2024-11-22 10:03] VITALS: BP 143/83; PULSE 88; TEMP 36.4; O2SAT 97
[2024-11-22] MEDS: iron sucrose 200 MG in sodium chloride 0.9% (100 ml) 100 ML IV (10:26)
== END 2024-12-22 23:59 | disposition home or self-care (01) ==
PROVIDERS: PCP Family Medicine; Visit Provider Internal Medicine Medical Oncology
DX: D50.9 Iron deficiency anemia, unspecified (principal); Z79.899 Other long term (current) drug therapy
CPT/HCPCS: 96365; J1756

== ENCOUNTER → 2025-03-03 16:31 | Outpatient (BNVA) | payer BC, SELFPAY | PROVIDERS: PCP Family Medicine; Visit Provider Family Medicine | DX: D50.9 Iron deficiency anemia, unspecified (principal) | CPT/HCPCS: 80053; 82746; 83550; 85025 ==

== ENCOUNTER → 2025-03-17 11:11 | Outpatient (BNVA) | payer BC, SELFPAY | PROVIDERS: PCP Family Medicine; Visit Provider Nurse Practitioner Psychiatric/Mental Health | DX: D50.9 Iron deficiency anemia, unspecified (principal); Z03.89 Encounter for observation for other suspected diseases and conditions ruled out | CPT/HCPCS: 80053; 80061; 83036 ==